=== PATIENT | male | born 1995 | race Caucasian/White ===

== ENCOUNTER 2018-02-22 14:46 | Emergency (ER) | payer SELFPAY ==
[~2018-02-22] VITALS: Ht 172.7 cm; Wt 79.4 kg
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
[2018-02-22] MEDS ORDERED: HYDROCODONE/APAP 10/325MG 1 EA TABLET ONE (15:00)
[2018-02-22] MEDS ORDERED: LIDOCAINE 2% 20 ML MDV ONE (15:00)
[2018-02-22] MEDS ORDERED: TDAP [DIPH/PERTUSSIS/TET] 0.5 ML VIAL IM ONE (15:00)
[2018-02-22] MEDS ORDERED: LIDOCAINE 1% INJ 50 ML MDV IJ ONE (15:01)
[2018-02-22] MEDS: TDAP [DIPH/PERTUSSIS/TET] 0.5 ML VIAL IM ONE (15:23)
[2018-02-22] MEDS: LIDOCAINE 2% 20 ML MDV TP ONE (15:24)
[2018-02-22] MEDS: HYDROCODONE/APAP 10/325MG 1 EA TABLET PO ONE (15:24)
[2018-02-22] MEDS ORDERED: CEPHALEXIN MONOHYDRATE 500 MG CAPSULE PO ONE (16:00)
[2018-02-22] MEDS: CEPHALEXIN MONOHYDRATE 500 MG CAPSULE PO ONE (16:02)
[2018-02-22 16:29] VITALS: BP 137/89
--- NOTE | 2018-02-22 16:34 | NUR ---
Patient discharged to home in stable condition. Written and verbal after care instructions given. Patient verbalizes understanding of instruction. Prescription given.
== END 2018-02-22 16:34 | disposition home or self-care (01) ==
LOC: ER 14:48
DX: S61.011A Laceration without foreign body of right thumb without damage to nail, initial encounter (principal); W25.XXXA Contact with sharp glass, initial encounter; Y93.89 Activity, other specified; Y92.89 Other specified places as the place of occurrence of the external cause; Y99.8 Other external cause status
CPT/HCPCS: 36415; 73130-TC; 90715; A4606; A6402; A6403; J3490; Z7610